=== PATIENT | male | born 1995 | race Caucasian/White ===

== ENCOUNTER 2019-11-13 19:42 | Emergency (ER) | payer MEDICAID, MEDICARE ==
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
--- NOTE | 2019-11-13 21:16 | CR ---
Left clavicle: 2 views of the left clavicle were obtained. Fracture is seen with the shaft clavicle with slight displacement and mild superior apex angulation. No additional abnormality is appreciated. Impression: 1. Left clavicle as noted above. Diagnostic code #3 This report was dictated in MDT
--- NOTE | 2019-11-13 21:16 | CR ---
Chest: 2 views of the chest were obtained. Comparison: No prior chest imaging is available. Lateral view is slightly less than optimal as patient's arm is not raised. Heart size and mediastinum are within normal limits. Lungs are felt to be clear. Left clavicle fracture is noted. No additional abnormality is appreciated. Impression: 1. Left clavicle fracture. 2. Nothing acute is otherwise seen on 2 view chest x-ray. Diagnostic code #3 This report was dictated in MDT
--- NOTE | 2019-11-13 21:16 | CR ---
Left shoulder: 3 views left shoulder were obtained. Comparison: No previous shoulder study. Left clavicle fracture is again noted. Glenohumeral alignment and acromioclavicular alignment appears normal. No discrete fracture or other bony abnormality is appreciated. Impression: 1. Left clavicle fracture. 2. Other portions of the left shoulder study are unremarkable. Diagnostic code #3 This report was dictated in MDT
== END 2019-11-13 20:51 | disposition home or self-care (01) ==
LOC: JD.ED 19:42
DX: S42.022A Displaced fracture of shaft of left clavicle, initial encounter for closed fracture (principal); Y04.0XXA Assault by unarmed brawl or fight, initial encounter
CPT/HCPCS: 71046; 71046-26; 73000-26-LT; 73000-LT; 73030-26-LT; 73030-LT; 99282; 99283-25

== ENCOUNTER 2020-01-16 10:33 | Emergency (ER) | payer MEDICARE, MEDICAID ==
[2020-01-16] MEDS ORDERED: HYDROmorphone 1 MG/ML Syringe IM ONE (12:00)
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
== END 2020-01-16 13:35 | disposition home or self-care (01) ==
LOC: JD.ED 10:33
DX: S02.40DA Maxillary fracture, left side, initial encounter for closed fracture (principal); S02.40CA Maxillary fracture, right side, initial encounter for closed fracture; S42.022A Displaced fracture of shaft of left clavicle, initial encounter for closed fracture; W22.8XXA Striking against or struck by other objects, initial encounter
CPT/HCPCS: 70450; 70486; 72125; 73000; 96372; 99284; J1170